=== PATIENT | female | born 1980 | race Caucasian/White ===

== ENCOUNTER 2016-09-22 12:28 | Emergency (ER) | payer BC ==
[~2016-09-22] VITALS: Ht 165.1 cm; Wt 64.0 kg
[~2016-09-22 12:28] MED LIST: AUGM875T PO; KETO10 PO
[2016-09-22 12:43] VITALS: BP 124/89; PULSE 83; RESP 15; TEMP 99; O2SAT 100
[2016-09-22] MEDS ORDERED: SODIUM CHLOR 0.9% 1000 ML INJ 1,000 ML IV ONE (14:30)
[2016-09-22] MEDS ORDERED: PROCHLORPERAZINE INJ 10 MG/2 ML VIAL IVS ONE (14:30)
[2016-09-22] MEDS ORDERED: KETOROLAC TROMETHAMINE 30 MG/ML (IVP) VIAL IV PUSH ONE (14:30)
[2016-09-22] MEDS ORDERED: diphenhydrAMINE HCL 50 MG/ML VIAL IV PUSH ONE (14:30)
[2016-09-22 15:05] VITALS: BP 119/79; PULSE 65; RESP 16; O2SAT 100
--- NOTE | 2016-09-22 15:26 | PD ---
HPI Chief Complaint: Headache Time Seen by Provider: 14:19 Travel History International Travel<30 days: No Contact w/Intl Traveler<30days: No Traveled to known affect area: No History of Present Illness HPI Patient is a 36-year-old female who comes in complaining of a headache. She says she has had a headache for the past week. She says the pain goes throughout her head, but is worse in the back. She went to see her primary care physician who gave her Toradol and 3 days of steroids. She says that helped. She called Dr. Galicia who advised that she come to the emergency department for a CT scan. She denies any fever or chills. She has not had any trauma to her head. She denies any blurred vision, nausea, vomiting. She did have an episode yesterday where she felt like she might pass out. She was worried because she has had seizures in the past. There was no seizure-like activity witnessed. PFSH Past Medical History Atrial Fibrillation: Yes Autoimmune Disease: Yes (FIBROMYALGIA) Blood Disorders: No Anxiety: No Depression: No Heart Rhythm Problems: Yes (Tachycardia) Cancer: No Cardiovascular Problems: Yes (tachycardia has loop recorder) High Cholesterol: No Chest Pain: No Congestive Heart Failure: No Diminished Hearing: No Endocrine: No Fibromyalgia: Yes Gastrointestinal Disorders: No Genitourinary: No Hypertension: No Immune Disorder: No Implanted Vascular Access Dvce: Yes Musculoskeletal: No Neurologic: Yes Psychiatric: No Reproductive: Yes (Ovarian cyst, ENDOMETRIOSIS) Respiratory: No Immunizations Current: No Seizures: No (2008-NOT CURRENTLY TAKING ANY MEDS) Influenza Vaccination: No ?: Not LMP: 08/26/2016 : 4 Para: 3 Miscarriage: 1 : 0 Past Surgical History Abdominal Surgery: No AICD: No Arteriovenous Shunt: No Body Medical Devices: loop recorder Cardiac Surgery: No Ear Surgery: No Endocrine Surgery: No Eye Surgery: No Genitourinary Surgery: No Gynecologic Surgery: Yes (Ex-lap for endometriosis) Insulin Pump: No Joint Replacement: No Neurologic Surgery: No Oral Surgery: No Thoracic Surgery: No Other Surgery: Yes (Loop recorder) Social History Alcohol Use: No Tobacco Use: No Substance Use: No Allergies-Medications (Allergen,Severity, Reaction): Coded Allergies: Rocephin (Verified Allergy, Unknown, Rash, 09/22/16) developed rash with IV vancomycin Vancomycin (Verified Allergy, Unknown, Rash, 09/22/16) devepoled rash with IV rocephin Reported Meds & Prescriptions Reported Meds & Active Scripts Active Fioricet (Kwsnaimqcx-Ovyifrerjhxrv-Zualoiqr) 50-300-40 Mg Cap 1 Cap PO Q4H PRN Review of Systems Except as stated in HPI: all other systems reviewed are Neg General / Constitutional: No: Fever, Chills Eyes: No: Blurred Vision HENT: Positive: Headaches Cardiovascular: No: Chest Pain or Discomfort Respiratory: No: Shortness of Breath Gastrointestinal: No: Nausea, Vomiting Genitourinary: No: Dysuria Skin: No Rash, No Change in Pigmentation Neurologic: No: Weakness, Dizziness Physical Exam Narrative GENERAL: Awake and alert in no acute distress. SKIN: Warm and dry. HEAD: Atraumatic. Normocephalic. EYES: Pupils equal and round. No scleral icterus. Extraocular movements intact. ENT: Mucous membranes pink and moist. NECK: Trachea midline. No JVD. CARDIOVASCULAR: Regular rate and rhythm. No murmur appreciated. RESPIRATORY: No accessory muscle use. Clear to auscultation. Breath sounds equal bilaterally. MUSCULOSKELETAL: No obvious deformities. No clubbing. No cyanosis. No edema. NEUROLOGICAL: Awake and alert. No obvious cranial nerve deficits. Motor grossly within normal limits. Normal speech. PSYCHIATRIC: Appropriate mood and affect; insight and judgment normal. Data Data Last Documented VS Vital Signs Date Time Temp Pulse Resp B/P Pulse Ox O2 Delivery O2 Flow Rate FiO2 09/22/16 15:41 18 09/22/16 15:05 65 119/79 100 Room Air 09/22/16 12:43 99.0 Orders Iv Access Insert/Monitor (09/22/16 14:27) Ed Urine Pregnancytest Poc (09/22/16 14:27) Sodium Chlor 0.9% 1000 Ml Inj (Ns 1000 M (09/22/16 14:30) Prochlorperazine Inj (Compazine Inj) (09/22/16 14:30) Diphenhydramine Inj (Benadryl Inj) (09/22/16 14:30) Ketorolac Inj (Toradol Inj) (09/22/16 14:30) Ct Brain W/O Iv Contrast(Rout) (09/22/16 ) Ndbk-Qxbyl-Rvju 325-50-40 Mg (Fioricet 3 (09/22/16 15:45) MDM Medical Decision Making Medical Screen Exam Complete: Yes Emergency Medical Condition: Yes Medical Record Reviewed: Yes Differential Diagnosis Migraine versus tension headache versus ICH Narrative Course Patient is a 36-year-old female who comes in complaining of a headache for 7 days. Exam shows no neurologic abnormalities. IV established, patient given IV fluids, Compazine, Benadryl, Toradol. CT head obtained, shows no acute abnormalities. Patient reports some improvement after medications. Patient states she has Fioricet at home and would like to go home and take that for her remaining symptoms. She says the medications have helped her to feel better, and she is comfortable one moment this time. Advised follow-up with Dr. Galicia. Advised to return to the ED as needed for any worsening symptoms. Diagnosis Primary Impression: Headache Qualified Code: R51 - Acute nonintractable headache, unspecified headache type Patient Instructions: Acute Headache (ED), General Instructions Additional Instructions: Take Ibuprofen as needed for headache. Take the Fioricet for pain not controlled by Ibuprofen. Do not combine Fioricet with Tylenol as it contains Tylenol. Follow up with Dr. Galicia. Return to the ED as needed for any worsening symptoms. Scripts Rtrwbqdhmz-Qpukxkcgngdep-Nipgzanz (Fioricet)50-300-40 Mg Cap1 Cap PO Q4H PRN ( HEADACHE) #15 CAP Ref 0 Prov:Darshana Bateman MD 09/22/16 Disposition: 01 DISCHARGE HOME Condition: Stable Darshana Bateman MD Sep 22, 2016 15:25
--- NOTE | 2016-09-22 15:35 | RADHPO ---
EXAM DATE/TIME: 09/22/2016 15:26 [facility] COMPARISON: No previous studies available for comparison. INDICATIONS : Headache. RADIATION DOSE: 64.55 CTDIvol (mGy) MEDICAL HISTORY : Seizures. Cardiovascular disease SURGICAL HISTORY : Pacemaker. ENCOUNTER: Initial ACUITY: 1 week PAIN SCALE: 4/10 LOCATION: cranial TECHNIQUE: Multiple contiguous axial images were obtained of the head. Using automated exposure control and adj ustment of the mA and/or kV according to patient size, radiation dose was kept as low as reasonably a chievable to obtain optimal diagnostic quality images. FINDINGS: CEREBRUM: The ventricles are normal for age. No evidence of midline shift, mass lesion, hemorrhage or acute in farction. No extra-axial fluid collections are seen. POSTERIOR FOSSA: The cerebellum and brainstem are intact. The 4th ventricle is midline. The cerebellopontine angle i s unremarkable. EXTRACRANIAL: The visualized portion of the orbits is intact. SKULL: The calvaria is intact. No evidence of skull fracture. CONCLUSION: Normal examination. Zeyad Alvarez MD on September 22, 2016 at 15:32 Board Certified Radiologist. This report was verified electronically.
[2016-09-22 15:41] VITALS: RESP 18
[2016-09-22] MEDS ORDERED: ACETAMIN 325 MG/BUTALBITAL 50 MG/CAFFEINE 40 MG TAB PO ONE (15:45)
[2016-09-22] MEDS ORDERED: BUTA1CAP PO ×2 (15:46→16:12)
[2016-09-22 16:17] VITALS: BP 109/70
== END 2016-09-22 16:20 | disposition home or self-care (01) ==
LOC: PHED 12:28
DX: R51 Headache (principal); I48.91 Unspecified atrial fibrillation; M79.7 Fibromyalgia; R00.0 Tachycardia, unspecified; Z86.69 Personal history of other diseases of the nervous system and sense organs; Z87.42 Personal history of other diseases of the female genital tract
CPT/HCPCS: 70450; 84703; 96361; 96374; 96375; 99284; J0780; J1200; J1885; J7030